=== PATIENT | male | born 1990 | race Caucasian/White ===

== ENCOUNTER 2021-12-17 08:35 | Outpatient (REF) | payer BC, SELFPAY ==
[2021-12-17 09:07] LABS: COVID-19 Test Positive (Negative); IDNOW Serial# 08D9AD1C
== END 2021-12-17 08:36 | disposition home or self-care (01) ==
LOC: HO.LAB 08:35
PROVIDERS: Visit Provider Internal Medicine
DX: Z20.822 Contact with and (suspected) exposure to COVID-19 (principal)
CPT/HCPCS: 87635; C9803

== ENCOUNTER 2021-12-28 13:19 | Outpatient (REF) | payer BC, SELFPAY ==
[2021-12-28 14:22] LABS: COVID-19 Test Negative (Negative); IDNOW Serial# 16C4AD1C
== END 2021-12-28 13:20 | disposition home or self-care (01) ==
LOC: HO.LAB 13:19
PROVIDERS: Visit Provider Internal Medicine
DX: Z20.822 Contact with and (suspected) exposure to COVID-19 (principal)
CPT/HCPCS: 87635; C9803

== ENCOUNTER 2022-05-13 17:47 | Outpatient (REF) | payer BC, SELFPAY ==
[2022-05-13 18:40] LABS: Influenza A PCR NEGATIVE (Negative); Influenza B PCR NEGATIVE (Negative); Resp Syncy Virus RNA Qual PCR NEGATIVE (Negative); SARS COV2 PCR INHOUSE NEGATIVE (Negative)
== END 2022-05-13 17:48 | disposition home or self-care (01) ==
LOC: HO.LNP 17:47
PROVIDERS: Visit Provider Physician Assistant
DX: Z20.822 Contact with and (suspected) exposure to COVID-19 (principal); B34.9 Viral infection, unspecified
CPT/HCPCS: 0241U

== ENCOUNTER 2022-08-29 04:31 | Emergency (ER) | payer BC, SELFPAY ==
--- NOTE | ~2022-08-29 | XR_ITS ---
EXAMINATION: XR FOOT, LEFT CLINICAL INFORMATION: Great toe pain COMPARISON: None TECHNIQUE: AP, lateral, and oblique views of the left foot. FINDINGS: The bones and soft tissues are normal. No fracture. Alignment is anatomic. Joint spaces are maintained. XR/XR foot LT min 3V IMPRESSION: Normal left foot.
[2022-08-29 04:37] VITALS: BP 136/89; PULSE 75; RESP 16; TEMP 36.7; O2SAT 99
--- NOTE | 2022-08-29 05:14 | PC.NURSE ---
Pt a&o, no sob or chest pain, no redness visually, pt able to put weight on leg, provider into assess pt.
--- NOTE | 2022-08-29 05:16 | ED_ITS ---
HPI - Extremity Problem General Chief complaint: Extremity Injury, Lower Stated complaint: foot pain Time Seen by Provider: 08/29/22 05:16 Source: patient Mode of arrival: ambulatory Limitations: no limitations History of Present Illness HPI Narrative: Patient no significant past medical history comes here with left greater toe pain since yesterday no trauma no signs of infection patient was walking on treadmill earlier yesterday Related Data Home Medications Medication Instructions Recorded Confirmed acetaminophen 500 mg tablet 1,000 mg PO Q6H PRN 05/22/22 (Tylenol Extra Strength) aspirin 81 mg tablet,delayed 162 mg PO DAILY 05/22/22 release (Adult Low Dose Aspirin) Previous Rx's Medication Instructions Recorded amoxicillin 875 mg-potassium 1 tab PO BID #14 tabs 05/22/22 clavulanate 125 mg tablet naproxen 500 mg tablet 500 mg PO BID PRN pain #14 tabs 05/22/22 ibuprofen 600 mg tablet 600 mg PO Q6H PRN fever or pain 08/29/22 #40 tabs Allergies Allergy/AdvReac Type Severity Reaction Status Date / Time No Known Allergies Allergy Verified 08/29/22 04:40 Review of Systems Review of Systems: Yes all other systems are reviewed and are negative [facility] Social History Social History Advance Directives: No Physical Exam Vital Signs: Vital Signs: Last Vital Signs Temp 98.1 F 08/29/22 04:37 Pulse 75 08/29/22 04:37 Resp 16 08/29/22 04:37 BP 136/89 08/29/22 04:37 Pulse Ox 99 08/29/22 04:37 O2 Del Method 08/29/22 04:37 BMI result Body Mass Index 20.0 Const: General: healthy appearing and comfortable Extrem: Ankle/foot/toe images: 1. Tenderness at base of left greater toe no signs of inflammation no joint swelling skin color is normal Medical Decision Making Medical Decision Making MDM Narrative: Patient with left greater toe pain which is localized more at the plantar aspect likely bursitis had a good range of movements of 1st MTP joint will discharge patient home on ibuprofen x-rays negative Discharge Plan Discharge Clinical Impression: Bursitis due to mechanical pressure Patient Disposition: Home, Self-Care Instructions: Metatarsalgia (DC) Additional Instructions: pain in the foot is likely from inflammation of the bursa Rest to your left foot Ibuprofen for pain Prescriptions: New ibuprofen 600 mg tablet 600 mg PO Q6H PRN (Reason: fever or pain) Qty: 40 0RF No Action acetaminophen [Tylenol Extra Strength] 500 mg tablet 1,000 mg PO Q6H PRN aspirin [Adult Low Dose Aspirin] 81 mg tablet,delayed release (DR/EC) 162 mg PO DAILY amoxicillin-pot clavulanate 875-125 mg tablet 1 tab PO BID Qty: 14 0RF naproxen 500 mg tablet 500 mg PO BID PRN (Reason: pain) Qty: 14 0RF Stand Alone Forms: Work/School Release
[2022-08-29 05:39] VITALS: BP 128/84; PULSE 60; RESP 18; TEMP 37; O2SAT 99
[2022-08-29] MEDS: Ibuprofen 600 MG TABLET PO (05:42)
== END 2022-08-29 06:02 | disposition home or self-care (01) ==
PROVIDERS: Emergency Provider Internal Medicine
DX: M71.572 Other bursitis, not elsewhere classified, left ankle and foot (principal); Z79.899 Other long term (current) drug therapy
CPT/HCPCS: 73630; 99283; 99284

== ENCOUNTER 2022-08-30 15:38 | Emergency (ER) | payer BC, SELFPAY ==
[2022-08-30 15:53] VITALS: BP 143/84; PULSE 79; RESP 16; TEMP 37.1; O2SAT 98; BMI 35.7
--- NOTE | 2022-08-30 15:54 | ED_ITS ---
HPI - Extremity Injury (Lower) General Chief Complaint: Extremity Problem Stated Complaint: previous visit, pain in leg Time Seen by Provider: 08/30/22 16:00 Source: patient and RN notes reviewed Mode of arrival: ambulatory Limitations: no limitations History of Present Illness HPI Narrative: 32 yo M presenting today with complaints of left foot pain since yesterday. Reports that he was walking on a treadmill and developed left foot pain. He states that the pain worsens with ambulation. He was seen here yesterday and had a xray of his left foot which was normal. Dx with bursitis and discharged on ibuprofen. He is here as he called his primary care physician for an appointment but they were unable to see him today. No new trauma or injury. MD complaint: foot injury Onset (ago): day(s) Severity: moderate Severity scale (1-10): 5 Relieving factors: nothing Exacerbating factors: nothing Context: walking Other symptoms: none Related Data Home Medications Medication Instructions Recorded Confirmed acetaminophen 500 mg tablet 1,000 mg PO Q6H PRN 05/22/22 (Tylenol Extra Strength) aspirin 81 mg tablet,delayed 162 mg PO DAILY 05/22/22 release (Adult Low Dose Aspirin) Previous Rx's Medication Instructions Recorded amoxicillin 875 mg-potassium 1 tab PO BID #14 tabs 05/22/22 clavulanate 125 mg tablet naproxen 500 mg tablet 500 mg PO BID PRN pain #14 tabs 05/22/22 ibuprofen 600 mg tablet 600 mg PO Q6H PRN fever or pain 08/29/22 #40 tabs Allergies Allergy/AdvReac Type Severity Reaction Status Date / Time No Known Allergies Allergy Verified 08/29/22 04:40 Review of Systems Review of Systems: Yes all other systems are reviewed and are negative [facility] Social History Social History Advance Directives: No Advance Directives Information Provided: No Physical Exam Vital Signs: Vital Signs: Last Vital Signs Temp 98.8 F 08/30/22 15:53 Pulse 79 08/30/22 15:53 Resp 16 08/30/22 15:53 BP 143/84 H 08/30/22 15:53 Pulse Ox 98 08/30/22 15:53 O2 Del Method 08/30/22 15:53 BMI result Body Mass Index 35.7 Appearance: Alert. Oriented X3. No acute distress. HEENT: normal inspection CVS: Normal heart rate and rhythm. Pulses normal. Respiratory: No respiratory distress. Skin: Skin warm and dry. Normal skin color. Normal skin turgor. No rashes. Extremities: Normal inspection to the left foot with no erythema, edema, increased warmth. Tenderness to palpation overlying the ball of the foot. No gross deformities. Neuro: Oriented X 3. Medical Decision Making Medical Decision Making MDM Narrative: 32 year old male presenting today with complaints of left foot pain since yesterday. Patient reports that he was walking on a treadmill and developed left foot pain. Seen yesterday for the same symptoms, had xrays which were unremarkable. Discharged with referrals to orthopedics and podiatry. advised to continue taking ibuprofen. Differential Diagnosis Differential Diagnoses: The differential diagnosis associated with the presentation includes left foot strain, sprain, constusion, fracture - less likely, bursitis Independent Interpretation I performed an independent interpretation of an: Plain X-Ray Interpretation: reviewed xrays performed yesterday, no acute fractures or abnormalities seen Radiology Impression Discussion of test interpretation with radiology: I have reviewed the radiologist's reading. Radiologist Impression: EXAMINATION: XR FOOT, LEFT CLINICAL INFORMATION: Great toe pain? COMPARISON: None? TECHNIQUE: AP, lateral, and oblique views of the left foot. FINDINGS: The bones and soft tissues are normal. No fracture. Alignment is anatomic. Joint spaces are maintained.? XR/XR foot LT min 3V IMPRESSION: Normal left foot. External Record Review External record reviewed: Outpatient record and Prior outpatient radiology Prescription Management I considered prescription management with: Pain Medication discharged on ibuprofen yesterday. Critical Care Time Critical Care Time Critical Care Time: No Discharge Plan Discharge Clinical Impression: Foot pain, left Patient Disposition: Home, Self-Care Instructions: Metatarsalgia (DC) Additional Instructions: Please take prescribed ibuprofen as directed as needed for pain. Stay off your feet as much as you can. Resting your foot will help your foot pain improve. Go to the pharmacy and buy orthotic shoe inserts as this will give your left foot more support. Follow up with referred orthopedics, call to make an appointment. Call the delivery engineer for an appointment as well. Follow up with your primary care physician. If you develop new or worsening symptoms call 911 or come back to the ER for further evaluation. Prescriptions: No Action ibuprofen 600 mg tablet 600 mg PO Q6H PRN (Reason: fever or pain) Qty: 40 0RF acetaminophen [Tylenol Extra Strength] 500 mg tablet 1,000 mg PO Q6H PRN aspirin [Adult Low Dose Aspirin] 81 mg tablet,delayed release (DR/EC) 162 mg PO DAILY amoxicillin-pot clavulanate 875-125 mg tablet 1 tab PO BID Qty: 14 0RF naproxen 500 mg tablet 500 mg PO BID PRN (Reason: pain) Qty: 14 0RF Referrals: [facility] [Provider Group] Luis Fernando Porras MD [Physician] - Stand Alone Forms: Work/School Release Interventions: ED Discharge Assessment Last Done: 08/30/22 16:10
== END 2022-08-30 16:12 | disposition home or self-care (01) ==
LOC: HO.ED 16:04
PROVIDERS: Emergency Provider Emergency Medicine; PCP Internal Medicine
DX: M79.672 Pain in left foot (principal); M71.572 Other bursitis, not elsewhere classified, left ankle and foot
CPT/HCPCS: 99282